=== PATIENT | male | born 1995 | race Caucasian/White ===

== ENCOUNTER 2019-11-15 01:19 | Outpatient (CLI) | payer BC, SELFPAY ==
--- NOTE | 2019-11-15 13:44 | DI.MRI_ITS ---
EXAM: MR BRAIN WO CLINICAL HISTORY: DIZZINESS, R42, HEADACHE, R51 TECHNIQUE: Multiplanar multisequence MRI of the brain was performed. COMPARISON: No exams were available for comparison FINDINGS: No intracranial hemorrhage, mass or infarct is seen. The ventricles are normal in size. There are no abnormal high signal lesions in the white matter. The vascular flow voids appear intact. The orbits and pituitary are unremarkable. The sinuses and mastoid air cells are clear. IMPRESSION: Normal brain MRI
== END 2019-11-15 01:39 ==
PROVIDERS: PCP Nurse Practitioner Family; Visit Provider Nurse Practitioner Family
DX: R51 Headache (principal); R42 Dizziness and giddiness
CPT/HCPCS: 70551

== ENCOUNTER 2019-11-22 17:30 | Outpatient (REF) | payer BC, SELFPAY ==
[2019-11-22 19:10] LABS: HCT 44.4 % (40.0-50.0); Mean Corpuscular Hemoglobin 31.4 pg (27.0-33.0); Mean Corpuscular Volume 87.2 fL (80-95); Mean Platelet Volume 10.6 fL (8.0-11.0); Platelet Count 256 x1000/uL (130-400); RBC 5.09 m/cumm (4.50-6.00); RBC Distribution Width 12.4 % (11.8-14.1); White Blood Cell Count 8.19 k/cumm (4.4-10.8)
[2019-11-22 19:51] LABS: Anion Gap 8.2 mmol/L (3-11); BUN 21 mg/dL (7-18); Bilirubin, Total 1.4 mg/dL (0.2-1.0); CO2 28.8 mmol/L (21.0-32.0); CREATININE 0.93 mg/dL (0.70-1.30); Calcium 9.5 mg/dL (8.5-10.1); Chloride 104 mmol/L (98-107); Glucose 99 mg/dL (74-106); Potassium 4.9 mmol/L (3.5-5.1); Sodium 141 mmol/L (136-145); TSH (W/Ref FT4) 2.13 uIU/mL (0.36-3.74)
== END 2019-11-22 17:50 ==
LOC: NCHCN 17:30
PROVIDERS: PCP Nurse Practitioner Family; Visit Provider Nurse Practitioner Family
DX: R51 Headache (principal); L04.8 Acute lymphadenitis of other sites; R42 Dizziness and giddiness
CPT/HCPCS: 80048; 85027; 82247; 83036; 84443

== ENCOUNTER 2022-09-08 19:50 | Emergency (ER) | payer BC, SELFPAY ==
--- NOTE | 2022-09-08 20:00 | DI.RAD_ITS ---
Exam(s) XR ANKLE RT COMPLETE EXAM: XR ANKLE RT COMPLETE CLINICAL HISTORY: Injury, R/O Fracture. TECHNIQUE: 2D digital imaging was performed. COMPARISON: No exams were available for comparison FINDINGS: 3 views There is soft tissue swelling laterally. No fracture or widening of the ankle mortise. Talar dome u nremarkable. Bone density normal. No osseous lesions. No tarsal coalition evident. IMPRESSION: No fracture. Soft tissue swelling. DATA REPOSITORY: RADIATION DOSE DELIVERED:
--- NOTE | 2022-09-08 20:14 | ED.GENADUL_ITS ---
Discharge Plan Disposition Patient Disposition: HOME Condition: Stable Discharge Details Clinical Impression: Mild sprain of right ankle Primary Care Provider: Alyssa Gay ED Provider: Mariola Yin Discharge Instructions Instructions: Ankle Sprain (ED) Additional Instructions: Please wear the walking boot as needed for comfort. Advance as tolerated. X- rays show no evidence for broken bones or fracture. Rest ice compression elevation. Please take Tylenol or Ibuprofen with food every 4-6 hours as needed for pain and swelling. Follow up with primary care provider in 3-5 days. Return to ED sooner if any worsening or concerns. Increase oral fluids. Referrals: Alyssa Gay [Primary Care Provider] - 5 days Medical Decision Making X-ray ordered rule out fracture. I do suspect sprain. Imaging Data Radiologic Study: Imaging: X-Ray Radiologist's impression: COMPARISON: No relevant prior studies available. FINDINGS: Bones/joints: No acute fracture or dislocation Soft tissues: Severe swelling IMPRESSION: No acute findings. HPI General Mode of arrival: ambulatory . Date/Time Provider Initiated Documentation: 09/08/22 19:55 . Limitations to Documentation: no limitations . Information obtained by: patient, RN notes reviewed and old records reviewed . HPI Narrative: 27-year-old male presents to the ER with chief complaint of right ankle pain. He reports around 3:00 he was at work when he had a mechanical fall and an inversion type injury to his right ankle. He has had that he heard a pop. He does have some lateral malleolus swelling and tenderness. Did not take any medications prior to arrival is declining any analgesia at this time. No obvious deformity distal CMS is intact. No other injuries or associated symptoms. Related Data Allergies Allergy/AdvReac Type Severity Reaction Status Date / Time penicillin V [Penicillin V] Allergy Verified 09/08/22 20:18 cillins Allergy unknown Uncoded 09/08/22 20:18 Review of Systems All systems reviewed & are unremarkable except as noted in HPI and below Musculoskeletal Musculoskeletal: Reports as per HPI, Reports arthralgias and Reports joint swelling PFSH All Active Problems (Updated 09/08/22 @ 21:28 by Mariola Yin NP) Mild sprain of right ankle (Acute) Social History Smoking/Tobacco Use Status: Never Smoking risk assessment performed?: Yes Alcohol Intake: current Drug use: Never Substance use type: does not use Exam Extrem Right lower extremity: ankle Details: tenderness, swelling and normal ROM; no foreign bodies
[2022-09-08 20:15] VITALS: BP 152/88; PULSE 90; RESP 16; TEMP 37.1; O2SAT 99
--- NOTE | 2022-09-08 20:57 | DI.VRAD_ITS ---
PROCEDURE INFORMATION: Exam: XR Right Ankle Exam date and time: 09/08/2022 8:39 PM Age: 27 years old Clinical indication: Injury or trauma; Fall; Work related; Blunt trauma; Ankle; Right; Injury date: 08/29/22; Injury details: Injury. R/O FX TECHNIQUE: Imaging protocol: Radiologic exam of the Right ankle. Views: 3 or more views. COMPARISON: No relevant prior studies available. FINDINGS: Bones/joints: No acute fracture or dislocation Soft tissues: Severe swelling IMPRESSION: No acute findings. Dictated and Authenticated by: Abraham Addison MD. Ordering:MALINI Garnett MD
== END 2022-09-08 22:02 | disposition home or self-care (01) ==
PROVIDERS: Emergency Provider Registered Nurse Emergency; PCP Nurse Practitioner Family
DX: S93.491A Sprain of other ligament of right ankle, initial encounter (principal); X50.1XXA Overexertion from prolonged static or awkward postures, initial encounter
CPT/HCPCS: 29515; 99283; 73610; 99282

== ENCOUNTER 2024-11-17 13:43 | Outpatient (REF) | payer BC, SELFPAY ==
[2024-11-17 15:38] LABS: Abs Immature Grans 0.02 10^3/uL (0.0-0.06); Absolute Basophil Count 0.05 10^3/uL (0.0-0.2); Absolute Eosinophil Count 0.23 10^3/uL (0.0-0.7); Absolute Lymphocyte Count 1.41 10^3/uL (1.2-3.4); Absolute Monocyte Count 0.45 10^3/uL (0.1-0.8); Absolute Neutrophil Count 3.14 10^3/uL (1.2-6.7); Basophils % 0.9 %; Eosinophils % 4.3 %; HCT 47.1 % (40.0-50.0); HGB 16.5 g/dL (13.5-17.5); Immature Grans % 0.4 %; Lymphocytes % 26.6 %; MCV 92 fL (80-95); MPV 10.5 fL (8.0-11.0); Monocytes % 8.5 %; Neutrophils % 59.3 %; Platelet Count 215 10^3/uL (130-400); RBC 5.15 10^6/uL (4.36-5.78); RDW-SD 40.3 fL
[2024-11-17 15:57] LABS: Hemoglobin A1C 4.7 % (<5.7)
[2024-11-17 16:31] LABS: ALT 65 U/L (16-63); AST 35 U/L (15-37); Alkaline Phosphatase 57 U/L (46-116); Anion Gap 7.4 mmol/L (3-11); BUN 15 mg/dL (7-18); Bilirubin, Direct 0.2 mg/dL (0.0-0.2); Bilirubin, Total 1.24 mg/dL (0.2-1.0); CO2 27.6 mmol/L (21.0-32.0); Calcium 9.5 mg/dL (8.5-10.1); Calculated LDL 76 mg/dL (<100); Chloride 107 mmol/L (98-107); Cholesterol 147 mg/dL (<200); Estimated GFR 103.19 (mL/min/1.73m2); Glucose 105 mg/dL (74-106); HDL Cholesterol 64 mg/dL (40-60); Potassium 4.9 mmol/L (3.5-5.1); Sodium 142 mmol/L (136-145); TSH 1.89 uIU/mL (0.36-3.74); Total Protein 7.9 g/dL (6.4-8.2); Triglyceride 35 mg/dL (<150); Vitamin D 25 Total 30.9 ng/mL (30-100)
== END 2024-11-17 13:44 | disposition home or self-care (01) ==
LOC: NCHCN 13:43
PROVIDERS: Visit Provider Family Medicine
DX: Z00.00 Encounter for general adult medical examination without abnormal findings (principal); E66.9 Obesity, unspecified; R17 Unspecified jaundice; Z83.3 Family history of diabetes mellitus
CPT/HCPCS: 80053; 80061; 82306; 82248; 83036; 84443; 85025